=== PATIENT | male | born 2000 | race Native Hawaiian/Other Pacific Islander ===

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

== ENCOUNTER 2018-02-09 09:15 | Emergency (ER) | payer MEDICAID ==
[2018-02-09 09:19] VITALS: BP 106/68; PULSE 69; TEMP 97; O2SAT 98
[2018-02-09 09:20] VITALS: BMI 26.7
[2018-02-09 09:39] VITALS: RESP 14
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
== END 2018-02-09 10:29 | disposition home or self-care (01) ==
LOC: H.ER 09:15
DX: T22.211A Burn of second degree of right forearm, initial encounter (principal); Y92.9 Unspecified place or not applicable

== ENCOUNTER 2018-08-12 09:17 | Emergency (ER) | payer MEDICAID ==
[2018-08-12 09:32] VITALS: BP 127/76; PULSE 60; TEMP 97; O2SAT 97; BMI 25.8
[2018-08-12 09:40] VITALS: RESP 16
--- NOTE | 2018-08-12 09:52 | ED PDOC ---
HPI: CCC, URI, Sore Throat Time Seen by Provider: 08/12/18 09:47 Chief Complaint (Nursing): ENT Problem History Per: Patient Onset/Duration Of Symptoms: Days (2) Current Symptoms Are (Timing): Still Present Location Of Pain: Throat Associated Symptoms: Sore Throat, Cough. denies: Fever Severity: Mild Additional Complaint(s): Sore throat cough and congestion x 2 days. denies fever or SOB Past Medical History Vital Signs: Last Vital Signs Temp 97 F L 08/12/18 09:31 Pulse 60 08/12/18 09:31 Resp 16 08/12/18 09:35 BP 127/76 08/12/18 09:31 Pulse Ox 97 08/12/18 09:31 - Medical History PMH: No Chronic Diseases - Family History Family History: States: Unknown Family Hx - Home Medications Home Medications: Ambulatory Orders Medication Instructions Recorded Albuterol HFA [Ventolin HFA 90 2 puff IH [id number] PRN #60 puff 07/19/17 mcg/actuation (8 g)] Azithromycin [Zithromax] 250 mg PO DAILY #6 tab 07/19/17 Benzonatate [Tessalon Perle] 100 mg PO Q8 PRN #30 capsule 07/19/17 Tobramycin 0.3% [Tobramycin 5 Ml] 1 drop OP TID #1 bottle 08/28/17 Azithromycin [Zithromax] 250 mg PO DAILY #6 tab 08/12/18 - Allergies Allergies/Adverse Reactions: Allergies Allergy/AdvReac Type Severity Reaction Status Date / Time shellfish derived Allergy SWELLING Verified 02/09/18 09:37 Review of Systems ROS Statement: Except As Marked, All Systems Reviewed And Found Negative Constitutional: Negative for: Fever ENT: Positive for: Throat Pain Respiratory: Positive for: Cough Physical Exam - Reviewed Nursing Documentation Reviewed: Yes Vital Signs Reviewed: Yes - Physical Exam Appears: Positive for: Non-toxic, No Acute Distress Head Exam: Positive for: ATRAUMATIC, NORMAL INSPECTION, NORMOCEPHALIC Skin: Positive for: Normal Color, Warm, DRY Eye Exam: Positive for: EOMI, Normal appearance, PERRL ENT: Positive for: Pharyngeal Erythema. Negative for: Sinus Pain/Drainage, Tonsillar Exudate, Tonsillar Swelling Neck: Positive for: Normal, Painless ROM Cardiovascular/Chest: Positive for: Regular Rate, Rhythm Respiratory: Positive for: CNT, Normal Breath Sounds Back: Positive for: Normal Inspection Extremity: Positive for: Normal ROM Neurologic/Psych: Positive for: Alert, Oriented - ECG O2 Sat by Pulse Oximetry: 97 Disposition - Clinical Impression Clinical Impression: Upper respiratory infection - Patient ED Disposition Is Patient to be Admitted: No Counseled Patient/Family Regarding: Studies Performed, Diagnosis, Need For Followup, Rx Given - Disposition Referrals: [facility] [Outside] Disposition: Routine/Home Disposition Time: 10:34 Condition: FAIR Prescriptions: Azithromycin [Zithromax] 250 mg PO DAILY #6 tab Instructions: Bacterial Upper Respiratory Infection, Adult Forms: [facility] (Wolof)
== END 2018-08-12 10:49 | disposition home or self-care (01) ==
LOC: H.ER 09:17
DX: J06.9 Acute upper respiratory infection, unspecified (principal)

== ENCOUNTER 2019-01-17 08:35 | Emergency (ER) | payer MEDICAID ==
[2019-01-17 08:40] VITALS: BMI 25.5
--- NOTE | 2019-01-17 10:17 | ED PDOC ---
HPI: CCC, URI, Sore Throat Time Seen by Provider: 01/17/19 09:16 Chief Complaint (Nursing): ENT Problem Chief Complaint (Provider): ENT Problem History Per: Patient History/Exam Limitations: no limitations Onset/Duration Of Symptoms: Days (x 2) Current Symptoms Are (Timing): Still Present Location Of Pain: Throat Associated Symptoms: Sore Throat, Cough Ear Symptoms: Bilateral: None Additional Complaint(s): 18 year old male with no significant medical history presents to the ED for evaluation of a sore throat and non-productive cough for two days. Patient states he has a decreased appetite due to pain. Denies fever, vomiting, nausea, trouble breathing and other complaints. PMD: Dr. Herlinda Conde Past Medical History Reviewed: Historical Data, Nursing Documentation, Vital Signs Vital Signs: Last Vital Signs Temp 98.3 F 01/17/19 08:40 Pulse 62 01/17/19 08:40 Resp 20 01/17/19 08:40 BP 109/65 01/17/19 08:40 Pulse Ox 98 01/17/19 08:40 - Medical History PMH: No Chronic Diseases - Surgical History Surgical History: No Surg Hx - Family History Family History: States: Unknown Family Hx - Social History Current smoker - smoking cessation education provided: Yes (Light Smoker < 10 ci garettes dailt) Alcohol: Social Drugs: Denies - Home Medications Home Medications: Ambulatory Orders Medication Instructions Recorded Albuterol HFA [Ventolin HFA 90 2 puff IH [id number] PRN #60 puff 07/19/17 mcg/actuation (8 g)] Azithromycin [Zithromax] 250 mg PO DAILY #6 tab 07/19/17 Benzonatate [Tessalon Perle] 100 mg PO Q8 PRN #30 capsule 07/19/17 Tobramycin 0.3% [Tobramycin 5 Ml] 1 drop OP TID #1 bottle 08/28/17 Azithromycin [Zithromax] 250 mg PO DAILY #6 tab 08/12/18 - Allergies Allergies/Adverse Reactions: Allergies Allergy/AdvReac Type Severity Reaction Status Date / Time shellfish derived Allergy SWELLING Verified 01/17/19 08:55 Review of Systems ROS Statement: Except As Marked, All Systems Reviewed And Found Negative Constitutional: Negative for: Fever, Chills ENT: Positive for: Throat Pain Respiratory: Positive for: Cough. Negative for: Hemoptysis, Sputum Gastrointestinal: Negative for: Nausea, Vomiting Physical Exam - Reviewed Nursing Documentation Reviewed: Yes Vital Signs Reviewed: Yes - Physical Exam Appears: Positive for: No Acute Distress Head Exam: Positive for: ATRAUMATIC, NORMAL INSPECTION, NORMOCEPHALIC Skin: Positive for: Normal Color, Warm, Dry Eye Exam: Positive for: EOMI, Normal appearance, PERRL ENT: Positive for: Pharyngeal Erythema (erythema to oropharynx). Negative for: Tonsillar Exudate, Tonsillar Swelling, Other (palpable lymphadenopathy) Neck: Positive for: Normal, Painless ROM, Supple Cardiovascular/Chest: Positive for: Regular Rate, Rhythm. Negative for: Murmur Respiratory: Positive for: Normal Breath Sounds. Negative for: Respiratory Distress Gastrointestinal/Abdominal: Positive for: Normal Exam, Soft. Negative for: Tenderness Back: Positive for: Normal Inspection. Negative for: L CVA Tenderness, R CVA Tenderness Extremity: Positive for: Normal ROM (x 4). Negative for: Deformity Neurological/Psych: Positive for: Awake, Alert, Normal Tone, Oriented. Negative for: Motor/Sensory Deficits - ECG O2 Sat by Pulse Oximetry: 98 (RA) Pulse Ox Interpretation: Normal Medical Decision Making Medical Decision Makin:16 MDM: workup for pharyngitis Decadron and Motrin for throat pain Strep and flu swabs Reassess 10:48 Patient is stable for discharge with diagnosis of pharyngitis. Patient advised to follow up with PMD and will give Motrin for pain. Scribe Attestation: Documented by Angelica Anaya, acting as a scribe Mikel Kelly MD Provider Scribe Attestation: All medical record entries made by the Scribe were at my direction and personally dictated by me. I have reviewed the chart and agree that the record accurately reflects my personal performance of the history, physical exam, medical decision making, and the department course for this patient. I have also personally directed, reviewed, and agree with the discharge instructions and disposition. Disposition - Clinical Impression Clinical Impression: Throat pain - Disposition Disposition: Routine/Home Disposition Time: 10:48 Condition: IMPROVED Additional Instructions: Follow up with primary medical doctor as needed. Take Motrin as needed for pain. Instructions: Sore Throat, Adult (DC) Forms: [facility] (Thai), [facility] ED School/Work Excuse Print Language: GREENLANDIC
[2019-01-17 11:21] VITALS: BP 113/72; PULSE 66; RESP 18; TEMP 98.5; O2SAT 100
== END 2019-01-17 11:00 | disposition home or self-care (01) ==
LOC: H.ER 08:35
DX: J02.9 Acute pharyngitis, unspecified (principal)
CPT/HCPCS: 87070; 87430; 87804; 96372; 99283; J1100

== ENCOUNTER 2019-02-21 09:16 | Emergency (ER) | payer MEDICAID ==
[2019-02-21 09:24] VITALS: BP 100/64; PULSE 61; RESP 16; TEMP 97.5; O2SAT 993
[2019-02-21 09:25] VITALS: BMI 26.3
--- NOTE | 2019-02-21 09:35 | ED PDOC ---
HPI: CCC, URI, Sore Throat Time Seen by Provider: 02/21/19 09:21 History Per: Patient Onset/Duration Of Symptoms: Days (2) Current Symptoms Are (Timing): Still Present Location Of Pain: Throat Associated Symptoms: Sore Throat, Cough. denies: Fever, Sputum, Sinus Drainage, Nasal Congestion Severity: Mild Additional Complaint(s): Sore throat assoc with non productive cough x 2 days. denies fever or chills. Denies SOB. Denies sinus congestion or pain Past Medical History Vital Signs: Last Vital Signs Temp 97.5 F L 02/21/19 09:24 Pulse 61 02/21/19 09:24 Resp 16 02/21/19 09:24 BP 100/64 02/21/19 09:24 Pulse Ox 993 H 02/21/19 09:24 - Medical History PMH: No Chronic Diseases - Family History Family History: States: Unknown Family Hx - Home Medications Home Medications: Ambulatory Orders Medication Instructions Recorded Albuterol HFA [Ventolin HFA 90 2 puff IH [id number] PRN #60 puff 07/19/17 mcg/actuation (8 g)] Azithromycin [Zithromax] 250 mg PO DAILY #6 tab 07/19/17 Benzonatate [Tessalon Perle] 100 mg PO Q8 PRN #30 capsule 07/19/17 Tobramycin 0.3% [Tobramycin 5 Ml] 1 drop OP TID #1 bottle 08/28/17 Azithromycin [Zithromax] 250 mg PO DAILY #6 tab 08/12/18 Benzonatate [Tessalon Perle] 200 mg PO Q8 #15 capsule 02/21/19 - Allergies Allergies/Adverse Reactions: Allergies Allergy/AdvReac Type Severity Reaction Status Date / Time shellfish derived Allergy SWELLING Verified 01/17/19 08:55 Review of Systems ROS Statement: Except As Marked, All Systems Reviewed And Found Negative ENT: Positive for: Throat Pain Respiratory: Positive for: Cough Physical Exam - Reviewed Nursing Documentation Reviewed: Yes Vital Signs Reviewed: Yes - Physical Exam Appears: Positive for: Non-toxic, No Acute Distress Head Exam: Positive for: ATRAUMATIC, NORMAL INSPECTION, NORMOCEPHALIC Skin: Positive for: Normal Color, Warm, DRY Eye Exam: Positive for: EOMI, Normal appearance, PERRL ENT: Positive for: Normal ENT Inspection Neck: Positive for: Normal, Painless ROM Cardiovascular/Chest: Positive for: Regular Rate, Rhythm Respiratory: Positive for: CNT, Normal Breath Sounds Gastrointestinal/Abdominal: Positive for: Normal Exam, Soft Back: Positive for: Normal Inspection Extremity: Positive for: Normal ROM Neurological/Psych: Positive for: Awake, Alert, Normal Tone - ECG O2 Sat by Pulse Oximetry: 993 Disposition - Clinical Impression Clinical Impression: Upper respiratory infection - Patient ED Disposition Is Patient to be Admitted: No Counseled Patient/Family Regarding: Studies Performed, Diagnosis, Need For Followup, Rx Given - Disposition Referrals: [facility] [Outside] Disposition: Routine/Home Disposition Time: 09:35 Condition: FAIR Prescriptions: Benzonatate [Tessalon Perle] 200 mg PO Q8 #15 capsule Instructions: Viral Upper Respiratory Infection, Adult (DC) Forms: [facility] ED School/Work Excuse
== END 2019-02-21 11:11 | disposition home or self-care (01) ==
LOC: SUPCPDRO 09:16 → H.ER 09:16
DX: J06.9 Acute upper respiratory infection, unspecified (principal)